=== PATIENT | female | born 1955 | race Asian ===

== ENCOUNTER 2020-06-19 09:09 | Day surgery (SDC) | payer OTHER ==
[~2020-06-19] VITALS: Ht 175.3 cm; Wt 78.0 kg
[2020-06-19 10:10] VITALS: BP 154/79; PULSE 64; TEMP 98.7
[2020-06-19] MEDS ORDERED: GLUCOPHAGE500 MG/TAB PO (10:18)
[2020-06-19] MEDS ORDERED: LIPITOR20 MG PO (10:19)
[2020-06-19] MEDS ORDERED: CHROMIUM PICOLI1 TA8 PO (10:20)
[2020-06-19] MEDS ORDERED: BITTERMELON PO (10:21)
[2020-06-19 11:15] VITALS: BP 116/73; PULSE 72; TEMP 97.6
[2020-06-19 11:30] VITALS: BP 133/69; PULSE 65
[2020-06-19 11:45] VITALS: BP 137/77; PULSE 66
--- NOTE | 2020-06-19 11:49 | NUR ---
PT ALERT AND SLEEPY UPON RETURNING FROM PROCEDURE ROOM. OFFERED WATER, PT WANTING TO SLEEP OFF ANETHESIA. LUNGS CLEAR, HRR, BOWEL SOUNDS PRESENT. ABD SOFT. PT DENIES PAIN, NAUSEA OR DISCOMFORT. WILL CONT TO MONITOR.
--- NOTE | 2020-06-19 11:53 | NUR ---
PT ALERT AND MORE AWAKE NOW. PT REQUESTING BLUEBERRY MUFFIN AND APPLE JUICE. PT TOLERATING WATER. DENIES PAIN OR NAUSEA. WILL CONTINUE TO MONITOR PROGRESS.
--- NOTE | 2020-06-19 11:55 | NUR ---
PT TOLERATING BLUEBERRY MUFFIN AND APPLE JUICE. PT STATES 'THROAT IS SORE'. PT HAVING TROUBLE SWALLOWING PIECES OF THE MUFFIN RELATED TO THE STRETCHING OF THE THROAT AND THE ORAL AIRWAY. PT DENIES WANTING MORE FOOD AND PLANS TO GO OUT FOR ICE CREAM UPON DISCHARGE. DENIES NAUSEA. WILL CONTINUE TO MONITOR.
--- NOTE | 2020-06-19 14:31 | NUR ---
PT TOLERATING FOOD AND FLUIDS WITHOUT NAUSEA AND VOMITING. DISMISSAL INSTRUCTIONS GIVEN AND EXPLAINED. PT VOICES UNDERSTANDING WITHOUT QUESTIONS. IV DC'D, PT TOLERATED WELL. PT DISCHARGED PER WC OUT THROUGH PT ENTRANCE TO FAMILY CAR. PT , ALVIN WAS DRIVING.
== END 2020-06-19 12:15 | disposition home or self-care (01) ==
LOC: SDCO 09:09
DX: Z12.11 Encounter for screening for malignant neoplasm of colon (principal); K22.2 Esophageal obstruction; K21.9 Gastro-esophageal reflux disease without esophagitis; K44.9 Diaphragmatic hernia without obstruction or gangrene; K29.30 Chronic superficial gastritis without bleeding; Z88.3 Allergy status to other anti-infective agents; E78.00 Pure hypercholesterolemia, unspecified; E11.9 Type 2 diabetes mellitus without complications; Z79.84 Long term (current) use of oral hypoglycemic drugs; J30.2 Other seasonal allergic rhinitis
CPT/HCPCS: C1726; J2704; J7030